=== PATIENT | female | born 1970 | race Caucasian/White ===

== ENCOUNTER → 2021-04-20 08:00 | Outpatient (CLI) | payer OTHER, SELFPAY ==
--- NOTE | ~2021-04-20 | MR_ITS ---
EXAMINATION: MR shoulder LT wo con DATE: 04/20/2021 09:00 INDICATION: Left shoulder pain. Impingement syndrome of left shoulder. TECHNIQUE: Magnetic resonance imaging (MRI) of the left shoulder was performed without intravenous co ntrast. Sequences included axial PD-weighted FS FSE, coronal oblique PD-weighted FS FSE and T2-weight ed FS FSE, and sagittal oblique T2-weighted FS FSE and T1-weighted FSE. COMPARISON: Left shoulder radiographs 04/07/2021 FINDINGS: Coracoacromial arch: The acromion undersurface is curved in morphology (type II). There is inferolateral tilt of acromion. There is mild acromioclavicular joint osteoarthritis. There is mild subacromial/subdeltoid bursitis. Rotator cuff: There is mild tendinopathy of supraspinatus and infraspinatus. Teres minor tendon is normal. Subscapu arjun tendon is normal. There is no asymmetric fatty atrophy of the rotator cuff muscle bellies. Biceps tendon and glenoid labrum: Biceps tendon is in bicipital groove. There is a longitudinal split tear of biceps tendon. There is d egeneration of the glenoid labrum without well-defined tear. Fluid: There is a small glenohumeral joint effusion. Bones/cartilage: There is shallow partial-thickness cartilage loss of glenoid. There is partial-thickness cartilage lo ss of humeral head, deep superiorly. Osteophytes are noted. IMPRESSION: 1. Moderate glenohumeral joint chondrosis. 2. Mild rotator cuff tendinopathy. No tear. 3. Mild acromioclavicular joint osteoarthritis. 4. Longitudinal split tear of proximal biceps tendon. 5. Small glenohumeral joint effusion. 6. Mild subacromial/subdeltoid bursitis. Reviewed, dictated and finalized at location A.
== END ==
PROVIDERS: PCP Internal Medicine; Visit Provider Physician Assistant Surgical
DX: M75.52 Bursitis of left shoulder (principal); M19.012 Primary osteoarthritis, left shoulder; M25.412 Effusion, left shoulder
CPT/HCPCS: 73221

== ENCOUNTER → 2021-04-21 15:09 | Outpatient (CLI) | payer OTHER, SELFPAY ==
--- NOTE | ~2021-04-21 | MM_ITS ---
EXAMINATION: MM scrn slime implant BI w wolf HISTORY: Screening mammogram TECHNIQUE: Craniocaudal and mediolateral oblique 3-D tomosynthesis images with implant displacement a nd synthetic 2-D images were generated. Craniocaudal and mediolateral oblique views of the breasts wi thout implant displacement were obtained using full field digital mammography. CAD analysis was submi tted and interpreted. COMPARISON: Comparison to multiple prior studies sequentially, with oldest reviewed study dated 10/21. BREAST PARENCHYMAL COMPOSITION: There are scattered areas of fibroglandular density. FINDINGS: There is no evidence of suspicious mass, calcification, or architectural distortion to sugg est malignancy in either breast. There has been no suspicious interval change. IMPRESSION: 1. No mammographic evidence of malignancy. 2. Recommend routine screening mammography in one year. BI-RADS Category 1: Negative Reviewed, dictated and finalized at location A.
== END ==
PROVIDERS: PCP Internal Medicine; Visit Provider Nurse Practitioner Obstetrics & Gynecology
DX: Z12.31 Encounter for screening mammogram for malignant neoplasm of breast (principal)
CPT/HCPCS: 77063; 77067

== ENCOUNTER → 2021-07-13 02:33 | Outpatient (CLI) | payer OTHER, SELFPAY ==
[2021-07-13 20:10] LABS: SARS-CoV-2 RNA PCR Positive
== END ==
PROVIDERS: PCP Internal Medicine; Visit Provider Orthopaedic Surgery
DX: U07.1 COVID-19 (principal)
CPT/HCPCS: C9803; U0003; U0005

== ENCOUNTER 2021-07-30 | Day surgery (SDC) | payer OTHER, SELFPAY ==
[2021-07-12 09:53] VITALS: BMI 28.3
--- NOTE | 2021-07-12 10:14 | PC.NURSE ---
Addendum entered by Zulay Bronson RN 07/26/21 10:17: PT INSTRUCTED TO ARRIVE AT 1100 ON 07/30/21 FOR SURGERY AT 1300. LAST DOSE OF VITAMINS 07/26/21. PT HAS STOPPED TAKING NAPROXEN LAST WEEK. Original Note: Report to the Outpatient Waiting Room, entrance under the green pavilion located off [facility], at time 10:00 on date 07/16/21. OR Time: 12:00. - You will be asked a series of questions to screen for COVID 19 for your protection. - A mask is required within the hospital. - No visitors are allowed at this time. Preoperative COVID Testing Requirements: COVID TEST 07/13 AT 7:50 No COVID Test needed if: (proof is required; if not received patient will have Rapid Test prior to entry) - Patient has received COVID Vaccine at least 14 days prior to procedure date or - Patient has positive COVID test result within last 90 days of surgery date. COVID Test needed if above criteria is not met If not COVID vaccinated a COVID test must be conducted within 72 hours of surgery and patient is asked to isolate self from time of testing until procedure. You will go to the [facility] for your COVID testing. The [facility] is located at the corner of [address] [facility]. You will only be called if COVID results are positive and your surgeon may reschedule your elective surgery date. Patients may have clear liquids (water, carbonated beverages, clear teas, apple juice) until 3 hours prior to surgery (9:00) with a maximum of 20 ounces. - No food from midnight until time of surgery Take the following medications with a SIP of water the morning of surgery: SERTRALINE Medications to discontinue per physician: VITAMINS/SUPPLEMENTS Date to take last dose: 07/12/21 STOP NAPROXEN 7 DAYS PRIOR TO SURGERY PER DR. MORENO Please no make-up, nail latvian, hairspray, perfume, deodorant, or body powder the day of surgery. No jewelry (including any body piercings) or valuables the day of surgery, leave them at home. Please take a shower or bath the night before, or the morning of, surgery with an antibacterial soap. Wear comfortable, loose fitting clothing. - Jewelry must be removed prior to entering the operating room. Rings and piercings that are not removed may be cut off. - The hospital will not accept responsibility for valuables. - Please leave all valuables, including medications, at home the day of surgery. If you are going home after surgery, a licensed shag truck driver must drive you home. - NO public transportation without another adult. - We recommend that an adult stay with you for 24 hours following discharge. - We also recommend that you do not drive, make important decision, drink alcoholic beverages, or take any drugs that were not prescribed by your health care provider for at least 24 hours after your discharge time. Follow any additional instructions given to you from your surgeon. Telephone instructions given to SONIA BENZ and asked if any additional questions and then verbalized understanding. Patient advised to call surgeon office or pre surgery nurse liaison [phone] if any additional questions.
--- NOTE | 2021-07-26 10:18 | PC.NURSE ---
Pt states no changes in medications or health history, other than Covid + test result, since initial interview. New instructions reviewed with pt. Pt denies further questions at this time.
--- NOTE | 2021-07-29 12:43 | WPDANESEPPF ---
Anes - Initial Pre Proc Eval Procedure: Operation Date: 07/30/21 10:30 Proposed Procedures p Left Shoulder Arthroscopic Biceps Tenodesis, Capsular Release, Distal Clavicle Excision, Labral Debridement - Mohan Ham MD Date/Time: 07/29/21 12:43 Surgeon: Mohan Ham MD Pre Op Diagnosis: Impinge Syndrome, Adhesive Capsulitis Lt Shoulder Patient Data Age: 50 Gender: F Height: 1.6 m Weight: 72.57 kg Allergies Allergy/AdvReac Type Severity Reaction Status Date / Time No Known Allergies Allergy Verified 07/30/21 09:10 Home Medications Medication Instructions Recorded Confirmed Type naproxen 500 mg tablet See Rx Instructions .ROUTE 11/10/20 07/30/21 Rx .COMPLEX #60 tablet cholecalciferol (vitamin D3) 1,250 1,250 mcg PO WEEKLY #10 cap 04/27/21 07/30/21 Rx mcg (50,000 unit) capsule cholecalciferol (vitamin D3) 25 25 mcg PO DAILY 04/27/21 07/30/21 History mcg (1,000 unit) capsule rosuvastatin 10 mg tablet 10 mg PO DAILY #90 tablet 04/27/21 07/30/21 Rx sertraline 50 mg tablet See Rx Instructions .ROUTE 05/06/21 07/30/21 Rx .COMPLEX #90 tablet Patient hx anesthesia problems: none Family hx anesthesia problems: none Results Review: All pre-operative results and documents have been reviewed as part of the pre-operative evaluation. FORMERLY [facility] Past Medical History Medical History (Updated 07/29/21 @ 12:44 by Stevenson Chin MD) Anxiety BMI 30.0-30.9,adult Encounter for preventive health examination Encounter to establish care Hyperlipidemia On senior living drug therapy Shoulder impingement Vitamin D deficiency Family History Family History Father Diabetes mellitus Hypertension Social History Social History Smoking status: Never smoker Alcohol intake: current Drinks per week: 4 Substance use: never Substance use type: does not use Living arrangements: with family Spiritual care concerns: No Anes - Eval Final PreProcedure Day of Procedure 07/29/21 12:43 Patient weight: overweight Heart: regular rate and rhythm Lungs: clear to auscultation and normal air movement Airway: Mallampati scale class II Neurological: alert and oriented Last oral intake: >/= 8 hours ASA classification: II Emergent: no Anesthetic plan: proceed Anesthesia type and monitoring: general ETT Results Review: All pre-operative results and documents have been reviewed as part of the pre-operative evaluation. Informed Consent: The patient's anesthetic plan and its attendant risks and benefits were discussed with the patient/family/POA. Questions were solicited and answers provided to the satisfaction of the patient/family/POA.
[2021-07-30] VITALS (9 sets, daily range): BP systolic 107–129; BP diastolic 62–85; PULSE 61–86; RESP 11–20; TEMP 36.2–36.9; O2SAT 94–100; BMI 28.1
--- NOTE | 2021-07-30 07:24 | WPDHPUPDATE1 ---
History and Physical Update Update Date/Time: 07/30/21 07:24 History and Physical has been reviewed, including an updated exam of the patient. There are NO changes in the patient's condition. Risks, benefits, and alternatives have been discussed and questions answered. Patient agrees to proceed with procedure.
--- NOTE | 2021-07-30 07:58 | ECG_ITS ---
Measurements Intervals [place] Rate: 71 P: 32 MT: 150 QRS: 45 QRSD: 76 T: 40 QT: 393 QTc: 430 Interpretive Statements SINUS RHYTHM DELAYED PRECORDIAL R/S TRANSITION LOW QRS VOLTAGE IN PRECORDIAL LEADS BORDERLINE T WAVE ABNORMALITY- ANTERIOR LEADS BASELINE ARTIFACT- III BORDERLINE ECG Electronically Signed On 07-30-2021 9:44:24 MACHINE BINDER STRIPPER by Elan Giraldo D.O.
--- NOTE | 2021-07-30 09:24 | WPDANESPNB ---
Anes - Peripheral Nerve Block Date/Time: 07/30/21 09:24 I have discussed with the patient/family/POA the placement of a peripheral nerve block for post-operative pain management, including associated risks, benefits, complications, and side effects. Alternative methods of post-operative analgesia were detailed. Questions were solicited and answers provided to the satisfaction of the patient/family/POA. Time-Out: A pre-procedural Time-Out was completed immediately before starting the procedure and confirmed: Patient Identification, Site, Procedure, Patient Position and the Availability of Requisite Equipment. Clinical Indications: Acute post-operative pain management requested by the operative surgeon. Nerve Block Insertion Note Anes-nerve block: supraclavicular left Patient position: supine Skin prep: chlorhexidine Needle: 22 gauge, stimulating, insulated echogenic needle. Needle length: 80 mm Technique: ultrasound (in plane) Injectate: bupivacaine 0.5% with epi 5 mcg/ml (20cc) Observations: tolerated well Complications: none Procedure start time:: 945 Procedure end time:: 950
[2021-07-30] MEDS: LACTATED RINGERS 1,000 ML 30 ML IV CONT ×2 (09:26→12:54)
[2021-07-30] MEDS: ACETAMINOPHEN 500 MG TABLET 1000 MG PO (09:26)
[2021-07-30] MEDS: KETOROLAC 15 MG/ML VIAL (*BKC) IV PUSH (09:26)
--- NOTE | 2021-07-30 09:48 | PM.HPGS ---
History of Present Illness History of Present Illness Consent: Risks, benefits, and alternatives have been discussed and questions answered. Patient agrees to proceed with procedure. Chief complaint: Impinge Syndrome, Adhesive Capsulitis Lt Shoulder Narrative: Judy Ring is a 50 year old female who complains of severe left shoulder pain and decreased ROM that has been ongoing since December 2018. Pain worse at night and with overhead motions, jerking motions. Notes some numbness and tingling in her hand radiating from her arm. Previous Treatments: NSAIDs Naproxen with mild benefit, Physical therapy for 2.5 months starting in October with minor benefit. Review of systems: Unremarkable PMFSH Past Medical History Medical History Anxiety BMI 30.0-30.9,adult Encounter for preventive health examination Encounter to establish care Hyperlipidemia On seamstress fitter drug therapy Shoulder impingement Vitamin D deficiency Family History Family History Father Diabetes mellitus Hypertension Social History Social History Smoking status: Never smoker Alcohol intake: current Drinks per week: 4 Substance use: never Substance use type: does not use Living arrangements: with family Spiritual care concerns: No Meds Home Medications and Allergies Home Medications Medication Instructions Recorded Confirmed Type naproxen 500 mg tablet See Rx Instructions .ROUTE 11/10/20 07/30/21 Rx .COMPLEX #60 tablet cholecalciferol (vitamin D3) 1,250 1,250 mcg PO WEEKLY #10 cap 04/27/21 07/30/21 Rx mcg (50,000 unit) capsule cholecalciferol (vitamin D3) 25 25 mcg PO DAILY 04/27/21 07/30/21 History mcg (1,000 unit) capsule rosuvastatin 10 mg tablet 10 mg PO DAILY #90 tablet 04/27/21 07/30/21 Rx sertraline 50 mg tablet See Rx Instructions .ROUTE 05/06/21 07/30/21 Rx .COMPLEX #90 tablet Allergies Allergy/AdvReac Type Severity Reaction Status Date / Time No Known Allergies Allergy Verified 07/30/21 09:10 Vital Signs Vital Signs - 24 hr 07/30/21 09:21 Temperature 36.9 C Pulse Rate 86 Respiratory Rate 18 Blood Pressure 129/85 Pulse Oximetry 98 Exam Narrative: No distress. Normal gait. Alert and oriented. No deformity. Exquisite tenderness at the rotator cuff insertion anterolaterally. Also tenderness along the proximal biceps. Moderate tenderness at the AC joint. Active elevation 150?, external rotation 45?, internal rotation to the greater trochanter. Painful arc of motion. Deltoid muscle intact. Supraspinatus strength 5/5. Speed's test positive. Positive Neer and Ugarte signs. Cervical spine motion normal. Cloth Cutting Machine Operator strength normal. Radial pulse palpable. Distal light touch sensation normal. Elbow full range of motion without instability. Shoulder without instability. No crepitus. The contralateral shoulder shows no deformity. No tenderness. No crepitus. Full active range of motion. No instability. Normal rotator cuff strength Diagnostics: Radiographs taken 04/07/21. No joint space narrowing. Left shoulder shows type 2 acromion. Very subtle suggestion of inferior humeral osteophyte although this may be related to shadows from her garments. 04/20/21 MRI. Longitudinal split tear of the biceps tendon noted. Possible superior labral tear. Partial-thickness cartilage loss and chondrosis with small inferior osteophyte. Significant rotator cuff tendinosis with evidence of impingement. No definite tear although subtle bursal side tear cannot be excluded. Assessment and Plan Assessment and plan (1) Adhesive capsulitis of left shoulder: Code(s): M75.02 - Adhesive capsulitis of left shoulder Status: Acute (2) Shoulder impingement: Qualifiers: Laterality: left Qualified Code(s): M75.42 - Impingement syndrome of
[2021-07-30] MEDS: ceFAZolin 2 GM/D5W 50 ML 2 GM/50 ML BAG IVPB (10:00)
[2021-07-30] MEDS: ONDANSETRON INJ 4 MG/2 ML VIAL IV PUSH (13:20)
[2021-07-30] MEDS: SCOPOLAMINE 1.5 MG PATCH TRANSDERM (13:35)
--- NOTE | 2021-07-30 15:06 | P.OP_ITS ---
Procedure Note - Detailed Date of Procedure 07/30/21 Pre-op Diagnosis Impingement Syndrome, Adhesive Capsulitis Lt Shoulder Post-op Diagnosis other (1. Left shoulder osteoarthritis 2. Adhesive capsulitis 3. Impingement syndrome 4. Acromioclavicular joint arthritis) Procedure Performed Left shoulder 1. Arthroscopic humeral chondroplasty 2. labral debridement 3. capsule release 4. distal clavicle excision 5. subacromial decompression Surgeon Mohan Ham MD Distribution Dispatcher Gladys Linares PA-C Anesthesia general Indications Severe shoulder pain and stiffness. Failed conservative treatment. Pain at the AC joint and biceps. MRI evidence of chondral damage and impingement with biceps tendonitis. Findings Extensive delamination with full thickness loose chondral flaps at the humerus. Moderate glenoid chondromalacia and labral degeneration. Description of Procedure Preoperative antibiotics were given. The patient was placed in the beach chair position. Bony prominences were carefully protected. The head was carefully positioned and secured. Examination under anesthesia revealed marked stiffness. Elevation approximately 90?, external rotation 25?, internal rotation 25?. The shoulder was prepped and draped in the usual sterile fashion. Standard posterior and anterior arthroscopic portals were established. Inflow obtained with the saline pump. Extensive synovitis encountered. Very tight glenohumeral joint. Large delaminated portions of the humeral head cartilage were observed. Debridement was performed. Much of the humeral head was denuded of cartilage. The glenoid had grade 1/2 chondromalacia. Labral degeneration was present. Superior labral tear also. The biceps tendon was lassoed and penetrated to form a locking suture construct. It was released from the superior labrum for later tenodesis. The supraspinatus and infraspinatus appeared normal. The subscapularis had mild undersurface splitting but no tearing. Capsule release was performed sequentially from both posterior and anterior portal approaches. The hook radiofrequency probe as well as the biter were used to carefully release the anterior and posterior capsule into the axillary fossa. The rotator interval tissue was excised. The biceps was tenodesed at the articular margin using a knotless SwiveLock anchor. The joint was much more mobile and the axillary pouch released nicely. Attention was turned to the subacromial space. The bursa was mildly thickened. The rotator cuff appeared intact. Slight downsloping of the anterolateral acromion confirmed. Modest acromioplasty performed. The distal clavicle was cleared of soft tissue and 1 cm distal clavicle excision performed. An accessory lateral portal was used during the procedure. The arthroscopic instruments were removed. The wounds were closed with interrupted 4-0 Monocryl suture followed by Steri-Strips. A sterile sling and dressing will are applied. The patient was extubated and brought to the recovery room in stable condition. Physician delivery assistant, Gladys Mejia PA-C, required for surgery; including patient positioning, draping, arthroscopic camera operation, maintaining instrument position, suture retrieval, anchor placement, wound closure, and dressing and sling placement. Implants Arthrex proximal biceps tenodesis kit with suture passing device, lasso suture, and knotless SwiveLock anchor. Estimated Blood Loss 10 Packing No Pathology none sent Complications No immediate complications Condition stable Disposition same day
== END 2021-07-30 15:00 | disposition home or self-care (01) ==
PROVIDERS: PCP Internal Medicine; Visit Provider Orthopaedic Surgery
PROC: (CPT 29805; principal; 2021-07-30 10:30)
DX: M75.02 Adhesive capsulitis of left shoulder (principal); M75.82 Other shoulder lesions, left shoulder; M75.22 Bicipital tendinitis, left shoulder; M65.812 Other synovitis and tenosynovitis, left shoulder; M25.812 Other specified joint disorders, left shoulder; M94.212 Chondromalacia, left shoulder; M25.511 Pain in right shoulder; M19.012 Primary osteoarthritis, left shoulder; G89.18 Other acute postprocedural pain; F41.9 Anxiety disorder, unspecified; E78.5 Hyperlipidemia, unspecified; E55.9 Vitamin D deficiency, unspecified
CPT/HCPCS: 64415; 29828; 29824; 29826; 93005; A4565; A9270; J0330; J0690; J1100; J1885; J2250; J2370; J2405; J2704; J2710; J3010; J7120

== ENCOUNTER 2024-01-03 15:04 | Outpatient (CLI) | payer OTHER, SELFPAY ==
--- NOTE | ~2024-01-03 | MM_ITS ---
EXAMINATION: MM scrn slime implant BI w wolf HISTORY: Screening mammogram TECHNIQUE: Craniocaudal and mediolateral oblique 3-D tomosynthesis images with implant displacement a nd synthetic 2-D images were generated. Craniocaudal and mediolateral oblique views of the breasts wi thout implant displacement were obtained using full field digital mammography. CAD analysis was submi tted and interpreted. COMPARISON: 04/21/2021, 11/20/2018 BREAST PARENCHYMAL COMPOSITION: The breasts are heterogeneously dense, which may obscure small masses . FINDINGS: There is no evidence of suspicious mass, calcification, or architectural distortion to sugg est malignancy in either breast. There has been no suspicious interval change. IMPRESSION: No mammographic evidence of malignancy. Recommend routine screening mammography in one year. BI-RADS Category 1: Negative Reviewed, dictated and finalized at [facility].
== END 2024-01-03 15:05 ==
PROVIDERS: PCP Nurse Practitioner; Visit Provider Nurse Practitioner
DX: Z12.31 Encounter for screening mammogram for malignant neoplasm of breast (principal)
CPT/HCPCS: 77063; 77067

== ENCOUNTER 2024-05-22 05:48 | Day surgery (SDC) | payer OTHER, SELFPAY ==
[2024-05-06 13:07] VITALS: BMI 23.4
[2024-05-22] VITALS (8 sets, daily range): BP systolic 98–151; BP diastolic 63–100; PULSE 71–104; RESP 12–16; TEMP 35.9–37.1; O2SAT 94–100
[2024-05-22] MEDS: LACTATED RINGERS 1,000 ML 30 ML IV CONT ×2 (06:50→10:55)
--- NOTE | 2024-05-22 06:52 | P.PNAN_ITS ---
Anes - Initial Pre Proc Eval Procedure: Operation Date: 05/22/24 07:30 Proposed Procedures p Bilateral Breast Implant Exchange - Lasha Armendariz MD s Bilateral Breast Mastopexy - Lasha Armendariz MD Date/Time: 05/22/24 06:52 Surgeon: Lasha Armendariz MD Pre Op Diagnosis: Possible LT Breast Implant Rupture, Breast Ptosis Patient Data Age: 53 Gender: F Height: 1.6 m Weight: 63.2 kg Allergies Allergy/AdvReac Type Severity Reaction Status Date / Time No Known Allergies Allergy Verified 05/22/24 06:12 Home Medications Medication Instructions Recorded Confirmed Type cholecalciferol (vitamin D3) 25 50 mcg PO DAILY 05/12/22 05/22/24 History mcg (1,000 unit) capsule lorazepam 0.5 mg tablet 0.5 mg PO DAILY PRN anxiety #40 08/31/23 05/22/24 Rx tabs estradiol 1 tab-cap PO DAILY 09/11/23 05/22/24 History magnesium 1 tab-cap PO DAILY 09/11/23 05/22/24 History mecobalamin (vitamin B12) 1 tab-cap PO DAILY 09/11/23 05/22/24 History omega-3 fatty acids-fish oil 1 tab-cap PO DAILY 09/11/23 05/22/24 History sertraline 50 mg tablet See Rx Instructions .Route 04/26/24 05/22/24 Rx .COMPLEX #90 tabs Patient hx anesthesia problems: none Family hx anesthesia problems: none Results Review: All pre-operative results and documents have been reviewed as part of the pre- operative evaluation. FOR[facility]LY [facility] Past Medical History Medical History (Updated 03/27/24 @ 09:01 by Saumya Willingham [facility]) Anxiety BMI 23.0-23.9, adult BMI 26.0-26.9,adult BMI 28.0-28.9,adult BMI 30.0-30.9,adult Carpal tunnel syndrome of left wrist Colon cancer screening Degenerative disc disease, lumbar Depressed mood DJD (degenerative joint disease) Encounter for preventive health examination Encounter for routine adult health examination without abnormal findings Encounter to establish care Hormone replacement therapy (HRT) Hyperlipidemia On middle or intermediate school principal drug therapy Sciatica of left side Shoulder impingement Tendonitis of elbow, left Vitamin D deficiency Family History Family History Father Diabetes mellitus Hypertension Heart disease Cerebrovascular accident Social History Social History Social History: caffeine-tea Smoking status: Never smoker Second hand tobacco smoke exposure: No Alcohol intake: current Drinks per week: 3 Substance use: never Substance use type: does not use Lack of Transportation: No Lack of Food: Never True Current Housing: I Have Housing Concerned About Future Housing: No Difficulty Paying Gas/Electric Bills: No Difficulty Paying for Meds: No Currently Unemployed: No Education: Associate Degree Difficulty w/ Childcare or Family Care: No Living arrangements: alone Gender identity (if verbalized by the patient): Female Spiritual care concerns: No Anes - Eval Final PreProcedure Day of Procedure 05/22/24 06:52 Patient weight: normal Heart: regular rate and rhythm Lungs: clear to auscultation Airway: Mallampati scale class III Neurological: alert and oriented Last oral intake: >/= 8 hours ASA classification: II Emergent: no Anesthetic plan: proceed Anesthesia type and monitoring: general LMA and standard monitoring Results Review: All pre-operative results and documents have been reviewed as part of the pre- operative evaluation. Informed Consent: The patient's anesthetic plan and its attendant risks and benefits were discussed with the patient/family/POA. Questions were solicited and answers provided to the satisfaction of the patient/family/POA.
[2024-05-22] MEDS: SCOPOLAMINE 1 MG PATCH 1 PATCH TRANSDERM (07:15)
--- NOTE | 2024-05-22 07:20 | WPDHPUPDATE1 ---
History and Physical Update Update Date/Time: 05/22/24 07:20 History and Physical has been reviewed, including an updated exam of the patient. There are NO changes in the patient's condition. Risks, benefits, and alternatives have been discussed and questions answered. Patient agrees to proceed with procedure.
[2024-05-22] MEDS: ceFAZolin SODIUM 2 GM/20 ML SW SYRINGE IV PUSH (07:36)
[2024-05-22] MEDS: TRANEXAMIC ACID 1,000 MG/10 ML AMPUL 1000 MG IV PUSH (07:36)
[2024-05-22] MEDS: NACL 0.9% IRRIG POUR BOTTLE 900 ML, GENTAMICIN SULFATE INJ 160 MG, ceFAZolin 2 GM, POVI... IRRIGATION (08:30)
[2024-05-22] MEDS: LACTATED RINGERS IRRIG 1,000 ML, LIDOCAINE HCL 1% LOCAL INJ 50 ML, EPINEPHrine HCL INJ ... INFILTRATE (08:40)
--- NOTE | 2024-05-22 10:51 | W.PM.PROC2 ---
Procedure Note - Detailed Date of Procedure 05/22/24 Pre-op Diagnosis Possible LT Breast Implant Rupture, Breast Ptosis Post-op Diagnosis Same Procedure Performed 1. Bilateral breast implant exchange 2. Bilateral breast mastopexy Surgeon Lasha Armendariz MD Anesthesia General Findings Inverted T Superior medial pedicle Previous implants: Bilateral Style 20 - 435cc Right intact Left ruptured Submuscular Replacement implants: Bilateral Jose Luis Morejon SoftTouch 485cc Right: REF# [id number] SN [id number] Left: REF# [id number] SN [id number] Submuscular Description of Procedure She is here today for the above. Previously and again today the risks, benefits, alternatives were discussed in extensive detail. I wanted her to be very realistic about the risks involved as well as expectations. We discussed aftercare and what to monitor for. Made sure answered all of her questions to her satisfaction today and consent was obtained. Marked in the preoperative holding area with their verification. The patient was taken to the operating room placed supine on the operating table. Anesthesia was provided by anesthesiology. A surgical time-out was taken. She was prepped and draped in a standard sterile fashion. Tegaderm nipple Cain were placed. 11 blade used to make a lateral stab incision along lateral IMF. Infiltration completed with tumescent solution laterally as a block / for planned suction lipectomy of this area. A 15 blade used to make an incision at th previous implant incison. Dissection was continued until the capsule was identified and I elevated off of this and removed a portion of capsule. Capsules were soft. Implants removed (findings as above). Copiously irrigated with more than 3 liters of saline solution and verified a strict hemostasis. Changed gloves. Capsulotomy completed as needed. I then copiously irrigated with saline solution and verified a strict hemostasis. Next the use a triple antibiotic and Betadine containing solution to irrigate the pocket. I washed my gloves with the triple antibiotic and Betadine solution. We washed the implant immediately upon opening it with this solution and only opened it when we needed it. I used implant funnel and no-touch technique. The implant was introduced into the pocket using the funnel. Having verified positioning of the implant this was closed using 2-0 PDS. Suction lipectomy was completed with a 4mm dave cannula based on preoperative planning and intraoperative observation / rolling pinch. I tailor tacked the breast into position. Placed her in a sitting position. Verified the nipple-areolar location based on preoperative planning as well as intraoperative observations and measurements in full agreement. She was placed supine. I de-epithelialized the pedicle. I then removed the inferior central portion of the breast need making sure the implant was well protected. I elevated medial and lateral tissue flaps as well for planned closure. I closed along the IMF with 2-0 Stratafix. Along the vertical with 2-0 PDS. I closed around the areola with 3-0 strata fix. 3-0 Monocryl along the vertical. 3-0 Stratafix along the IMF. I finally closed everything with running subcuticular 4-0 Monocryl and tissue glue. Fluffs and surgical bra were placed. Estimated Blood Loss 50 Drains No Packing No Pathology None sent Complications No immediate complications Condition Stable Disposition PACU
--- NOTE | 2024-05-22 12:34 | WPDANESPN ---
Anes - Prog Note Post-Op Date/Time: 05/22/24 12:34 Cardiovascular status: normal Respiratory status: normal Airway patency: baseline Mental status: baseline Post-Op hydration status: normal Vital Signs: Last Vital Signs Temp 36.1 C L 05/22/24 11:25 Pulse 71 05/22/24 12:20 Resp 16 05/22/24 12:20 BP 110/75 05/22/24 12:20 Pulse Ox 95 05/22/24 12:05 O2 Del Method Room Air 05/22/24 12:05 O2 Flow Rate 6 05/22/24 11:10 Pain Score (VAS): 2 I/O: Intake & Output 05/21/24 05/22/24 05/22/24 23:59 07:59 15:59 Intake Total 500 200 Balance 500 200 Post-procedural complaints: none Patient Feedback: Patient satisfied with anesthetic care. Other Findings: Patient vital signs back to baseline. Patient denies nausea and vomiting. Patient's pain under control. Patient OK for discharge.
== END 2024-05-22 12:28 | disposition home or self-care (01) ==
PROVIDERS: PCP Internal Medicine; Visit Provider Surgery Plastic and Reconstructive Surgery
PROC: (CPT 19342; principal; 2024-05-22 07:30)
PROC: (CPT 19316; 2024-05-22 07:30)
DX: T85.41XA Breakdown (mechanical) of breast prosthesis and implant, initial encounter (principal)
CPT/HCPCS: 19342; 19316

== ENCOUNTER 2024-09-16 09:49 | Outpatient (CLI) | payer OTHER, SELFPAY ==
[2024-09-16 10:57] LABS: Alanine Aminotransferase 19 U/L (6-35); Albumin Level 4.5 g/dL (3.5-5.1); Alkaline Phosphatase 70 U/L (38-126); Anion Gap 7 mmol/L (4-12); Aspartate Amino Transferase 22 U/L (14-36); Bilirubin,Total 0.4 mg/dL (0.2-1.3); Blood Urea Nitrogen 16 mg/dL (7-17); Calcium 9.5 mg/dL (8.4-10.2); Carbon Dioxide 28 mmol/L (22-30); Chloride 104 mmol/L (98-107); Cholesterol 197 mg/dL (0-200); Estimated Glomerular Filt Rate > 60; Glucose 90 mg/dL (65-110); HDL Direct 76 mg/dL; Potassium 4.5 mmol/L (3.4-5.0); Sodium 139 mmol/L (137-145); Triglycerides 84 mg/dL (<150)
[2024-09-16 11:08] LABS: LDL Cholesterol Direct 93 mg/dL
--- OUTSIDE RECORDS SUMMARY | 2024-09-16 11:12 | XMS_ITS | Clinical Summary ---
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 Gender Identity Not on file Sexual Orientation Not on file Obstetrics History Last Filed Vital Signs Vital Sign Reading Time Taken Comments Blood Pressure 110/76 05/16/2017 3:31 PM TUTORING CLINICIAN Pulse - - Temperature - - Respiratory Rate - - Oxygen Saturation - - Inhaled Oxygen Concentration - - Weight 62.6 kg (138 lb) 05/16/2017 3:31 PM TUTORING CLINICIAN Height 160 cm (5' 3 ) 05/16/2017 3:31 PM TUTORING CLINICIAN Body Mass Index 24.45 05/16/2017 3:31 PM TUTORING CLINICIAN Plan of Treatment Not on file Insurance [employer] Care Teams Wearing Apparel Presser Relationship Specialty Start Date End Date Unknown, Notinfile PCP - General 11/29/16
--- OUTSIDE RECORDS SUMMARY | 2024-09-16 11:12 | XMS_ITS | Encounter Summary ---
Author Organization [facility] Address [address] [place] [phone] Phone Care Team Providers Care Production Recovery Operator Name Role Phone Unknown, Notinfile Primary Care Provider Unavail able Reason for Referral * Diagnostic Imaging (Routine) - Closed Specialty Diagnoses / Procedures Referred By Contac t Referred To Contact Procedures US Abdomen W Doppler Audie Acharya MD Phone: tel: fax: Referral ID Status Reason Start Date Expiration Date Visits Re quested Visits Authorized [id number] Closed 01/25/2017 07/24/2017 1 1 Encounter Details Date Type Department Care Team (Late st Contact Info) Description 01/25/2017 Orders Only [facility] [address] [phone] Audie Acharya MD [address] [address] Social History Tobacco Use Types Packs/Day Years Used Date Smoking Tobacco: Never Assessed Comments Unknown Sex and Gender Information Value Date Recorded Sex Assigned at Not on file 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 Gender Identity Not on file Sexual Orientation Not on file documented as of this encounter Plan of Treatment Not on file documented as of this encounter Procedures Procedure Name Priority Date/Time Associated Diagnosis Comments US ADBDOMEN W DOPPLER Schedule Routine, Read Routine (OP Routine) 01/25/2017 documented in this encounter Results * US Abdomen W Doppler (01/25/2017) Anatomical Region Laterality Modality Abdomen N/A Ultrasound us Audie Acharya MD IMSrinivasan US PROCEDURES Edited Result - Final documented in this encounter Visit Diagnoses Not on filedocumented in this encounter Care Teams Production Recovery Operator Relationship Specialty Start Date End Date Unknown, Notinfile PCP - General 11/29/16 documented as of this encounter
--- OUTSIDE RECORDS SUMMARY | 2024-09-16 11:13 | XMS_ITS | Clinical Summary ---
Author Organization [facility] Address [address] [place] [id number] Care Team Providers Care Electrical Equipment Assembler Name Role Phone Unavailable Primary Care Provider Unavailabl e Social History Tobacco Use Types Packs/Day Years Used Date Smoking Tobacco: Never Assessed Comments Unknown Sex and Gender Information Value Date Recorded Sex Assigned at Not on file Legal Sex Female 7:11 PM CDT Gender Identity Not on file Sexual Orientation Not on file Plan of Treatment Health Maintenance Due Date Last Done Comments Cervical Cancer Screening Pa p Smear (Age 30 to 64) Every 3 Years 1971 Colorectal Cancer Screening Colonoscopy (10 Years) 1971 Annual Physical 12/12/1974 Hepatitis C 12/12/1989 DTaP, Tdap and Td Vaccines ( 1 - Tdap) 12/12/1990 Hepatitis B Vaccines (1 of 3 - 19+ 3-dose series) 12/12/1990 Cervical Cancer Screening Pa p with HPV Testing (Age 30 to 64) Every 5 Years 12/12/2001 Cervical Cancer Screening with HPV 12/12/2001 Mammogram Screening 2011 Zoster Vaccines (1 of 2) 12/12/2021 COVID-19 Vaccine (2023-2 5 season) 2024 Influenza Adult (#1) 2024 Meningococcal B Vaccine Aged Out No l onger eligible based on patient's age to complete this topic Meningococcal Vaccine Aged Out No tamara carissa eligible based on patient's age to complete this topic Pneumococcal Vaccine: Pediat rics (0 to 5 Years) and At-Risk Patients (6 to 64 Years) Aged Out No longer eligible b ased on patient's age to complete this topic RSV Immunizations Under 20 Months Aged Out No longer eligible based on patient's age to complete this topic
--- OUTSIDE RECORDS SUMMARY | 2024-09-16 11:13 | XMS_ITS | Referral Summary ---
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 Gender Identity Not on file Sexual Orientation Not on file Last Filed Vital Signs Vital Sign Reading Time Taken Comments Blood Pressure 110/76 05/16/2017 3:31 PM PROFESSOR OF [employer]UD[employer] Pulse - - Temperature - - Respiratory Rate - - Oxygen Saturation - - Inhaled Oxygen Concentration - - Weight 62.6 kg (138 lb) 05/16/2017 3:31 PM PROFESSOR OF [employer]UDIES Height 160 cm (5' 3 ) 05/16/2017 3:31 PM PROFESSOR OF [employer] STUDIES Body Mass Index 24.45 05/16/2017 3:31 PM PROFESSOR OF [employer] STUDIES Plan of Treatment Not on file Insurance [employer] [facility] H[facility]/PPO Address: [facility] [address] [place] [address] Care Teams Wildlife Veterinarian Relationship Specialty Start Date End Date Unknown, Notinfile PCP - General 11/29/16
--- OUTSIDE RECORDS SUMMARY | 2024-09-16 11:13 | XMS_ITS | Data Portability ---
Author Organization [facility] [place] Address [address] [place] [address] Care Team Providers Care Solvent Recoverer Name Role Phone [email or web address] Primary Care Provider Assessment Encounter Date Assessment Date Assessment LastModified by Organization Details LastModified Time 04/07/2022 04/07/2022 Annual gynecological exam performed. Patient will come back in a year unless there are new symptoms. [email or web address] Not available 04/07/2022 12:15:17 09/15/2022 09/15/2022 Unbillable encounter. IUD MIrena is not . Good x 8yrs. Placed 2017. [email or web address] Not available 09/15/2022 11:13:17 05/16/2023 05/16/2023 Annual gynecological exam performed. Patient will come back in a year unless there are new symptoms. [email or web address] Not available 05/16/2023 09:04:33 08/08/2024 08/08/2024 Annual gynecological exam performed. Patient will come back in a year unless there are new symptoms. [email or web address] Not available 08/08/2024 10:44:23 Plan of Treatment Reminders Order Date Submit Date Provider Last Modified By Organization Details Last Modified Time Details Appointments None recorded. Lab None recorded. Referral None recorded. Procedures None recorded. Surgeries None recorded. Imaging MAMMO, screening, digital, bilateral 2022 023 MEEK [facility], [address], [place], [address], 4 07:41:29 US, pelvis 2021 022 [email or web address] [place], [address], [place], [address], 01:48:47 US, transvagina l 2021 [email or web address] [place], [address], [place], [address], 01:48:47 MAMMO, screening, bilateral 2021 MEEK [facility], [address], [place], [address], 05:01:44 US, pelvis, complete 2021 [email or web address] [place] [address], [place], [address], 18:06:57 Medication Orders None recorded. Patient TargetsNo targets recorded. Patient InstructionsNo instructions recorded. Reason for Referral None Reported. Results Created Date Observation Date Name Description Value Unit Range Abnormal Flag Note LastModifiedBy Organization Detail LastModifiedTime 04/08/20 22 04/08/2022 IMAGE GUIDE D PAP AND HPV REGAR DLESS image guided Pap, HPV regardless of Pap result SEE RESULT S BELOW CASE REPOR T: Cytol ogy Gynec ologi michelle Repor t Case: [id number] Autho courtney roberts Provi ramírez: Greg Ross Colle cted: 04/08 1101 FLEET MAINTENANCE MANAGER Order ing Locat ion: [place] [facility] log[facility] Recei jhoana: 04/10 1437 First Scree n: Nacha mpass ak, Sivil ay, CT Speci men: Scree callum Pap - Image d, Cervi x STATE MENT OF ADEQU ACY: Satis facto ry for evalu ation Trans forma tion zone compo nent prese nt FINAL DIAGN OSIS: Negat daniel for Intra epith elial Lesio n or Malig karoline (NIL) . Shift in an[place] sugge stive of bacte rial vagin osis. Elect rod porter christen d by Milagros stevens, Nasrin pillai, CT on 2021 at 2:05 PM ----- ----- ----- ----- ----- ----- ----- ----- ----- ----- ----- ----- ----- ----- ----- ----- ----- ---- HPV RESUL TS: HPV mRNA E6/E7 : No HPV mRNA Detec armando NOTE: This high risk HPV mRNA assay detec ts fourt een high- risk HPV types (16, 18, 31, 33, 35, 39, 45, 51, 52, 56, 58, 59, 66, 68) witho ut diffe renti ation . COMME NT: Note: This speci men was revie wed by a Cytot echno logis t and/o r Patho logis t (as indic ated in this repor t) after evalu ation using the Thinp rep Imagi ng Syste m. CLINI MICHELLE INFOR MATIO N: Menst rual Statu s: LMP (if appli cable ): Clini michelle Histo ry/Pr eviou s Pap: Type of Neopl donovan (if appli cable ): Signi fican t Clini michelle Findi ngs: Other Histo ry: Hormo geetha (if appli cable ): PAP EDUCA CLAUDIA L NOTE: The Pap Test is a scree callum test with an inher ent false negat daniel rate. Liqui d-bas ed sampl ing may decre ase, but will not elimi michael, false negat daniel resul ts. A negat daniel resul t does not precl ude the prese nce and/o r devel opmen t of disea se, since the prese nce of abnor mal cells in the sampl e depen ds on the locat ion of the lesio n and sampl ing techn ique. [place] n[place] regul ar scree callum is the best metho d of cance r preve ntion . If repor armando cytol ogic findi ng do not corre late with physi michelle and/o r histo rical findi ngs, furth er inves tigat ion is recom brianne d, as clini rebel young nted. Not Available [facility] Infectious Disease [address], [place], [address], 04/15/2022 15:08:04 05/16/20 23 05/16/2023 IMAGE GUIDE D PAP AND HPV REGAR DLESS image guided Pap, HPV regardless of Pap result SEE RESULT S BELOW CASE REPOR T: Cytol ogy Gynec ologi michelle Repor t Case: [id number] Autho courtney g Provi ramírez: Mariam Barahona, SHILA Colle cted: 05/16 1337 Order ing Locat ion: [place] [facility] Recei jhoana: 05/17 0318 First Scree n: Nathalie Barker, CT Speci men: Scree callum Pap - Image d, Cervi x STATE MENT OF ADEQU ACY: Satis facto ry for evalu ation Trans forma tion zone compo nent prese nt FINAL DIAGN OSIS: Negat daniel for Intra epith elial Lesio n or Vitaly ramey (NIL) . Shift in [place] sugge stive of bacte rial vagin osis. Elect rod porter christen d by Nathalie Barker, CT on 2022 at 11:45 AM ----- ----- ----- ----- ----- ----- ----- ----- ----- ----- ----- ----- ----- ----- ----- ----- ----- ---- HPV RESUL TS: HPV mRNA E6/E7 : No HPV mRNA Detec armando NOTE: This high risk HPV mRNA assay detec ts fourt een high- risk HPV types (16, 18, 31, 33, 35, 39, 45, 51, 52, 56, 58, 59, 66, 68) witho ut diffe renti ation . COMME NT: This speci men was revie wed by a Cytot echno logis t and/o r Patho logis t (as indic ated in this repor t) after evalu ation using the Thinp rep Imagi ng Syste m. CLINI MICHELLE INFOR MATIO N: Menst rual Statu s: LMP (if appli cable ): Clini michelle Histo ry/Pr eviou s Pap: Type of Neopl donovan (if appli cable ): Signi fican t Clini michelle Findi ngs: Other Histo ry: Hormo geetha (if appli cable ): PAP EDUCA CLAUDIA L NOTE: The Pap Test is a scree callum test with an inher ent false negat daniel rate. Liqui d-bas ed sampl ing may decre ase, but will not elimi michael, false negat daniel resul ts. A negat daniel resul t does not precl ude the prese nce and/o r devel opmen t of disea se, since the prese nce of abnor mal cells in the sampl e depen ds on the locat ion of the lesio n and sampl ing techn ique. [place] n[place] regul ar scree callum is the best metho d of cance r preve ntion . If repor armando cytol ogic findi ng do not corre late with physi michelle and/o r histo rical findi ngs, furth er inves tigat ion is recom brianne d, as clini rebel young nted. Not Available [facility] (Lab) [address] [facility] [facility], [place], [address], 05/18/2023 12:49:13 08/08/19 25 08/08/2024 IMAGE GUIDE D PAP AND HPV REGAR DLESS image guided Pap, HPV regardless of Pap result SEE RESULT S BELOW CASE REPOR T: Cytol ogy Gynec ologi michelle Repor t Case: [id number] Autho courtney g Provi ramírez: Emmanuel Montalvo MD Colle cted: 08/08 1102 Order ing Locat ion: [place] [facility] [place] Recei jhoana: 08/09 0316 First Scree n: Cr Singh, CT Speci men: Scree callum Pap - Image d, Cervi x STATE MENT OF ADEQU ACY: Satis facto ry for evalu ation Trans forma tion zone compo nent prese nt ----- ----- ----- ----- ----- ----- ----- ----- ----- ----- ----- ----- ----- ----- ----- ----- ----- ---- FINAL DIAGN OSIS: Negat daniel for Intra epith elial Lesio n or Vitaly ramey (NIL) . Shift in [place] sugge stive of bacte rial vagin osis. Elect rod reeder by Cr Singh, CT on 025 at 1529 FACILITIES MANAGER ----- ----- ----- ----- ----- ----- ----- ----- ----- ----- ----- ----- ----- ----- ----- ----- ----- ---- HPV RESUL TS: HPV mRNA E6/E7 : No HPV mRNA Detec armando NOTE: This high risk HPV mRNA assay detec ts fourt een high- risk HPV types (16, 18, 31, 33, 35, 39, 45, 51, 52, 56, 58, 59, 66, 68) witho ut diffe renti ation . COMME NT: This speci men was revie wed by a Cytot echno logis t and/o r Patho logis t (as indic ated in this repor t) after evalu ation using the Thinp rep Imagi ng Syste m. CLINI MICHELLE INFOR MATIO N: Menst rual Statu s: LMP (if appli cable ): Clini michelle Histo ry/Pr eviou s Pap: Type of Neopl donovan (if appli cable ): Signi ficreyna t Clini michelle Findi ngs: Other Histo ry: Hormo geetha (if appli cable ): PAP EDUCA CLAUDIA L NOTE: The Pap Test is a scree callum test with an inher ent false negat daniel rate. Liqui d-bas ed sampl ing may decre ase, but will not elimi michael, false negat daniel resul ts. A negat daniel resul t does not precl ude the prese nce and/o r devel opmen t of disea se, since the prese nce of abnor mal cells in the sampl e depen ds on the locat ion of the lesio n and sampl ing techn ique. [place] n[place] regul ar scree callum is the best metho d of cance r preve ntion . If repor armando cytol ogic findi ng do not corre late with physi michelle and/o r histo rical findi ngs, furth er inves tigat ion is recom brianne d, as clini rebel young nted. Not Available [facility] (Lab) [address], [place], [address], 08/13/2024 16:32:36 04/08/20 22 04/08/2022 US, pelvi s No observ ation record ed. [email or web address] [place] [address], [place], [address], 04/08/2022 13:32:09 04/08/20 22 04/08/2022 US, trans vagin al No observ ation record ed. [email or web address] [place] [address], [place], [address], 04/08/2022 13:32:23 04/08/20 22 04/08/2022 US, pelvi s No observ ation record ed. MEEK [address] [facility], [place], [address], 04/13/2022 10:58:49 01/04/20 24 01/03/2024 MAMMO , scree callum, digit al, bilat eral No observ ation record ed. [facility] [address], [place], [address], 01/05/2024 11:34:02 Result Notes None recorded. Problems Name Problem SNOMED Code Status Onset Date Resolution Date Notes Provider Name and Address Organization Details Recorded Time Screening for malignant neoplasm of rectum Completed 201703/06/2021 Encounter for screening for malignant neoplasm of rectum;Re corded Elsewhere : No Locati on: [facility] So urce: EHR Chron ic: N Practic e ID: [id number] Bill able Time: 02:30:00 PM Nicole Caruso [facility] 11:56:[address] Concept Completed 201703/06/2021 Encntr for inventory specialist exam (general) (routine) w/o abn findings; Recorded Elsewhere : No Locati on: [facility] So urce: EHR Chron ic: N Practic e ID: [id number] Bill able Time: 02:30:00 PM Nicole Caruso [facility] 11:56:[address] Concept Completed 201703/06/2021 Encntr for general adult medical exam w/o abnormal findings; Recorded Elsewhere : No Locati on: [facility] So urce: EHR Chron ic: N Practic e ID: [id number] Bill able Time: 02:30:00 PM Nicole Iniguezemeka bee [facility] 11:56:43 Problem Notes None recorded. Procedures Surgical History Date Name Laterality Status Provider Name and Address Organization Details Recorded Time 5 IUD Removal completed RAIZA BLOOM MD [address], [place], [address], [facility] 08/08/2024 11:16:54 4 Breast Implants completed Evelyn Mendes [facility] 08/08/2024 10:48:59 3 Date of Last Pap Smear completed Evelyn Mendes [facility] 08/08/2024 10:42:19 1 Date of Last Mammogram completed Sarah Finn [facility] 04/07/2022 12:22:58 8 Breast Implants completed Nicole Caruso [facility] 03/06/2021 12:03:28 Imaging Results Imaging Date Name Status LastModified by Organization Details LastModified Time 04/08/2022 US, pelvis completed [address], [place], [address], 04/08/2022 13:32:09 04/08/2022 US, [facility]inal [facility] [address], [place], [address], 04/08/2022 13:32:23 04/08/2022 US, pelvis completed MEEK [address], [place], [address], 04/13/2022 10:58:49 01/03/2024 MAMMO, screening, digital, bilateral completed [facility] [address], [place], [address], 01/05/2024 11:34:02 Procedure Notes None recorded. Medical Equipment None Reported. Allergies No known drug allergies Medications Name Sig Start Date Stop Date Status Note LastModified by Organization Details LastModified Time carisopro dol 350 mg tablet active Not Available Not Available No t Available hydrocodo ne 5 mg-acetam inophen 325 mg tablet 04/07 completed Not Available Not Available Not Available metronida zole 0.75 % (37.5 mg/5 gram) vaginal gel insert 1 applicat orful by vaginal route for 5 nights at bedtime 09/15 completed Not Available Not Available Not Available ondansetr on HCl 4 mg tablet active Not Available Not Available No t Available tramadol 50 mg tablet 04/07 completed Not Available Not Available Not Available oxycodone -acetamin ophen 5 mg-325 mg tablet 08/08 completed Not Available Not Available Not Available lorazepam 0.5 mg tablet active Not Available Not Available Not Available estradiol 1 mg tablet active Not Available Not Available Not Available metformin 1,000 mg tablet active Not Available Not Available Not Available hydroxyzi ne HCl 25 mg tablet 04/07 completed Not Available Not Available Not Available Vitamin D2 1,250 mcg (50,000 unit) capsule take 1 capsule by oral route every week 03/06 completed Prescrib calvin Aldana e: No Locat ion: Sree dam[facility] M odify By: elysia mace DateTime : 06/12/20 03:17:16 PM Not Available Not Available Not Available sertralin e 50 mg tablet active Not Available Not Available Not Available naproxen 500 mg tablet 04/07 completed Not Available Not Available Not Available progester one micronize d 100 mg capsule active Not Available Not Available Not Available tobramyci n 0.3 %-dexamet hasone 0.1 % eye drops,hi pension 05/16 completed Not Available Not Available Not Available rosuvasta tin 5 mg tablet active Not Available Not Available Not Available rosuvasta tin 10 mg tablet 08/08 completed Not Available Not Available Not Available rosuvasta tin 20 mg tablet 08/08 completed Not Available Not Available Not Available Vitals Date Recorded Body height Body mass index (BMI) Body weight Provider Name and Address Organization Details Last Updated DateTime 04/07/2022 157.48 cm 29.1 kg/m2 21412.19 g Sarah Finn [facility] 04/07/2022 12:16:15 Date Recorded Systolic blood pressure Diastolic blood pressure Provider Name and Address Organization Details Last Updated DateTime 04/07/2022 122 mm[Hg] 70 mm[Hg] Sandra Jackson, [facility]- [address], [place], [address], [facility] 04/07/2022 12:23:38 Date Recorded Body weight Systolic blood pressure Diastolic blood pressure Provider Name and Address Organization Details Last Updated DateTime 05/16/2023 26873.27 g 136 mm[Hg] 84 mm[Hg] Sarah Hemphill [facility] 05/16/2023 12:32:32 Date Recorded Body height Body mass index (BMI) Body weight Systolic blood pressure Diastolic blood pressure Provider Name and Address Organization Details Last Updated DateTime 08/08/2024 157.48 cm 25.2 kg/m2 56438.75 g 138 mm[Hg] 89 mm[Hg] Evelyn Mendes [facility] 10:47:52 Social History Question Answer Notes LastModified by Organizat ion Details LastModified Time Tobacco Smoking Status Never Smoker Carito Chairez rohit, [facility] 05/16/2023 12:29:16 Do You Have An Advance Directive? No [email or web address] Information not available 03/06/2021 What Is Your Level Of Alcohol Consumption? Occasional [email or web address] Information not available 03/06/2021 How Many Years Have You Consumed Alcohol? 28 [email or web address] Information not available 03/06/2021 Are You Blind Or Do You Have Difficulty Seeing? No [email or web address] Information not available 03/06/2021 What Is Your Level Of Caffeine Consumption? None [email or web address] Information not available 03/06/2021 How Much Tobacco Do You Chew? None [email or web address] Information not available 03/06/2021 In The 14 Days Before Symptom Onset, Have You Had Close Contact With A Laboratory-confir med COVID-19 While That Case Was Ill? No [email or web address] Information not available 03/06/2021 In The 14 Days Before Symptom Onset, Have You Had Close Contact With A Person Who Is Under Investigation For COVID-19 While That Person Was Ill? No [email or web address] Information not available 03/06/2021 Have You Been To An Area Known To Be High Risk For COVID-19? No [email or web address] Information not available 03/06/2021 Are You Deaf Or Do You Have Serious Difficulty Hearing? No [email or web address] Information not available 03/06/2021 What Type Of Diet Are You Following? REGULAR [email or web address] Information not available 03/06/2021 What Is The Highest Grade Or Level Of School You Have Completed Or The Highest Degree You Have Received? MP21520-8 [email or web address] Information not available 03/06/2021 What Is Your Occupation? Self Employed [email or web address] Information not available 03/06/2021 Are There Any Guns Present In Your Home? No Information not available 03/06/2021 Do You Use Protection During Sex? No [email or web address] Information not available 03/06/2021 Do You Use Your Seat Belt Or Car Seat Routinely? Yes [email or web address] Information not available 03/06/2021 Do You Have Smoke And Carbon Monoxide Detectors In Your Home? Yes Information not available 03/06/2021 How Much Tobacco Do You Smoke? No [email or web address] Information not available 03/06/2021 Do You Feel Stressed (tense, Restless, Nervous, Or Anxious, Or Unable To Sleep At Night)? RR08222-5 [email or web address] Information not available 03/06/2021 Do You Use Any Illicit Or Recreational Drugs? No [email or web address] Information not available 03/06/2021 Do You Use Sunscreen Routinely? Yes Information not available 03/06/2021 Have You Used IV Drugs? No [email or web address] Information not available 03/06/2021 Sex: Unknown Functional Status Question Answer Note LastModified by Organizat ion Details LastModified Time Do you have difficulty walking or climbing stairs? No [email or web address] Information not available 05/16/2023 Are you able to walk? YESWOREST [email or web address] Information not available 03/06/2021 Are you able to care for yourself? Yes [email or web address] Information not available 05/16/2023 Do you have difficulty dressing or bathing? No [email or web address] Information not available 05/16/2023 What is your exercise level? Moderate [email or web address] Information not available 03/06/2021 Mental Status None recorded. Family History Relationship Description Onset Age of this Age Resolved Age Notes LastModified by Organization Details LastModified Time Father Diabetes mellitus [email or web address] Not available 2021 12:16:27 Father Hypertensive disorder [email or web address] Not available 2021 12:16:27 Father Diabetes mellitus [email or web address] Not available 2024 10:31:57 Father Hypertensive disorder Not available 2024 10:31:57 Medical History Condition Response Allergies (Food, seasonal, environmental ) N Other N Breast Cancer N Drug/Latex Allergies/Reactions N Blood Transfusion N Dermatologic Disorders N Lung Disease N Defects or Inherited Disease N Breast Problem Y Gestational Diabetes N Hematologic disorders N Anesthesia Complications N History of STI N Deep Vein Thrombosis N Polycystic ovary syndrome N Anxiety Disorder Y Autoimmune disease N Arthritis N Infertility N Polyps N Acid Reflux (GERD) N History of abnormal pap N Cancer N Stroke N Varicosities N Neurologic/Epilepsy N Endometriosis N High Cholesterol N Headaches N Fibromyalgia N Kidney Disease N Heart Problems N Kidney or Bladder Problems N Thyroid Problems N GI Problems N Eating Disorder N Anemia N Art (IVF or FET) N Psychiatric Illness N Ovarian Cancer N Diabetes N Pulmonary (TB, Asthma) N Hepatitis/Liver Disease N No Past Medical History N Eczema N Urinary Tract Infection N Abuse/Domestic Violence N Asthma N Trauma/Violence N Depression/ depression N Heart Disease N Pre-Eclampsia N Hypertension N Osteoporosis N Thrombophilias N Gynecological History Statement/Question Response Abnormal Pap N Date of Last Mammogram 04/21/2021 Date of LMP 07/10/2009 On BCP's at Conception? N N Was last menstrual period normal Y STIs/STDs N HPV Vaccine N Current Control Method IUD Age at First Child 28 Sexually Active? Y Menses Monthly N Age of first menstrual cycle 15 Date of Last Pap Smear 05/16/2023 Sexual Problems? N LMP Approximate Y Obstetrics History GPAL:G 2 P 2 0 0 2 Type Value Full Term 2 Living 2 Total 2 Past Encounters Encounter ID Performer Location Encounter Start Date Encounter Closed Date Diagnosis/Indication Diagnosis SNOMED-CT Code Diagnosis ICD10 Code Diagnosis Note [id number] [facility] [address] [address] 03/06/2021 11:34:17 03/07/2021 23:13:13 Gynecologic examination 15679625 Z01.419 Suggested Calcium with Vitamin D 1200-1500m g daily. Patient advised to get an annual flu shot in the fall and she could obtain at [facility] or [facility] take care clinic. Also to obtain TDap vaccinatio n if you have not had one in the last 10 years. Recommend yearly mammograms . Encouraged monthly self breast exams. Encourage safe sexual practices, to use condoms and limit partners if not already in a monogamous relationsh ip. Engage in daily exercise of low impact aerobic exercise 45-60 minutes 4-5 times weekly. Avoid tobacco and illicit drugs as well as using moderation with alcohol intake less than 1-2 8 oz beverages daily. This lifestyle behavior pattern will lead to less health conditions and longer life span. If BMI greater than 25 weight watchers or dietary consult advised. All questions have been answered. Patient appears to understand informatio n, but if you have any questions please call or respond to this email. Pap/hpv sentIUD mirena strings +Pt had this device placed elsewhere. Will call & get placement date.STD declinedMa mmo ordered No other issues or concerns. Screening mammography 24 890910 Z12.31 [id number] Sandra Jackson [facility] [address],[place] [address] 09/15/2022 10:53:55 09/15/2022 11:13:23 [id number] Sandra Jackson [facility] [address],[place] [address] 04/07/2022 11:50:33 04/07/2022 12:43:07 Gynecologic examination 60599741 Z01.419 Z11.51 Take Calcium with Vitamin D 12-1500mg daily. Do monthly self breast exams. It is advised to get annual flu shot in the fall and she could obtain at [facility] or [facility] care clinic. If you haven't received the Tdap vaccine in the last 10 years you should obtain one as well. Have mammogram yearly, bone density every 2-3 years and colonoscop y every 5-10 years depending on findings and history. Engage in daily exercise of low impact aerobic exercise 45-60 minutes 4-5 times weekly. Avoid tobacco and illicit drugs as well as using moderation with alcohol intake less than 1-2 8 oz beverages daily. This lifestyle behavior pattern will lead to less health conditions and longer life span. If BMI greater than 25 weight watchers or dietary consult advised. Questions have been answered. Patient appears to understand instructio ns, but if you have any further questions call or respond to this email Pap/hpv sentSTD Screen declinedGe netic Screen discussedC olon Screen PCPDexa Screen PCPRoutine Labs PCPMammo Ordered Screening mammography 24 713845 Z12.31 Secondary dysmenorrhea 63319215 N94.5 WIll update US to ensure no issues & IUD checkExam wn today [id number] Tish Tavarez [facility] [address],[place] [address] 04/08/2022 12:28:05 04/08/2022 14:02:42 Secondary dysmenorrhea 90352507 N94.5 [id number] SUNDAR Houser [facility] [address],[place] [address] 05/16/2023 12:28:38 05/16/2023 13:18:14 Gynecologic examination 81859912 Z01.419 [facility] inserted 07/2016happ y with this method and would like to continuewi ll 07/2024pap updatedSTI testing declinedma mmogram order givenUTD with PCP for routine labscolono scopy UTDRTC in 1 yr or sooner if needed Take Calcium with Vitamin D daily.Do monthly self breast exams.It is advised to get annual flu shot in the fall and she could obtain at [facility] or [facility] clinic. If you haven't received the Tdap vaccine in the last 10 years you should obtain one as well.Have mammogram yearly, bone density every 2-3 years and colonoscop y every 5-10 years depending on findings and history.En samy in daily exercise of low impact aerobic exercise 45-60 minutes 4-5 times weekly. Avoid tobacco and illicit drugs as well as using moderation with alcohol intake less than 1-2 8 oz beverages daily. This lifestyle behavior pattern will lead to less health conditions and longer life span. If BMI greater than 25 dietary consult advised.Qu estions have been answered. Patient appears to understand instructio ns, but if you have any further questions call or respond to this email Screening for malignant neoplasm of breast [id number] Z12.39 Weight gain [id number] R63. 5 labs UTDexercis e recommenda tions reviewed (150 min per week, cardio and strength exercises) recommende d certified family mediator consult - resources discussed [id number] RAIZA BLOOM MD [place] [address],[facility] [place] [address] 08/08/2024 10:31:20 08/08/2024 11:18:57 Gynecologic examination [id number] Z01.419 [facility] woman care- Cervical cancer screening: Pap smear obtained today, will follow up on the results with the patient as they become available- Breast cancer screening: mammogram completed- HPV immunizati on: does not qualify- STD testing: declined- hereditary cancer screening: does not qualify for testing Removal of intrauterine contraceptive device [id number] Z30.432 1. IUD removed on 08/08 without difficulty 2. Menopausal on lab work, will monitor for bleeding Health Concerns Section Related Observation LastModified by Organization Detai ls LastModified Time None Recorded Concern Status LastModified by Organization Details LastModified Time None Recorded Advance Directives Directive N: Payers Encounter Date Sequence Insurance Name Policy Number Policy Todd Covered Member ID Todd Member ID Guarantor Name 04/07/[address] [facility] [employer] - CHOICE PLUS (PPO) [id number] Judy BiOM María Elena [id number] Judy María Elena 04/08/2022 1 [employer] CHOICE PLUS (PPO) [id number] Judy L María Elena [id number] Judy María Elena 09/15/2022 1 [employer] CHOICE [employer] (PPO) [id number] Judy L María Elena [id number] Judy María Elena 05/16/2023 1 [facility] [employer] - CHOICE PLUS (PPO) [id number] Judy L María Elena [id number] Judy María Elena 08/08/2024 1 [facility] [employer] - CHOICE PLUS (PPO) [id number] Judy BiOM María Elena [id number] [facility] María Elena Notes Date Note Type Note Provider Name and Address Organization Details Recorded Time 04/07/2022 text/html Annual GYNReport ed bypatient.History:no gynecologic complaints Menstrual cycle:Severe dysmenorrhea(the last couple of months noticed increased cramping around cycle time with IUD. Neg dyspareunia) Urinary symptoms:No hematuria; No incontinence Vulva:No genital lesion Vagina:Normal vaginal discharge Breast:No breast pain; No breast lump; No nipple discharge Current Contraception:Satisf ied with current contraception; Intrauterine device (iud) Sexual complaints:No sexual complaints; No pain during intercourse; Normal libido Menopausal Symptoms:No menopausal symptoms; Normal vaginal lubrication Psychological symptoms:No depression; No anxiety; No PMDD Preventive measures:Encourage self breast examination; Encourage regular exercise; Encourage no tobacco use; Encourage regular mammograms starting age 40; Followed with yearly pap smears; Needs to schedule mammogram; Up to date on colonoscopy screening SUNDAR [place]- [address], [place], [address], [facility] 04/07/2022 12:37:36 05/16/2023 text/html Annual GYNReport ed bypatient.Menstrual cycle:Normal menses Urinary symptoms:No hematuria; No incontinence Vulva:No genital lesion Vagina:Normal vaginal discharge Breast:No breast pain; No breast lump; No nipple discharge Current Contraception:Satisf ied with current contraception; Intrauterine device (iud); mirena IUD, inserted 07/2016 Sexual complaints:No sexual complaints; No pain during intercourse; Normal libido Menopausal Symptoms:No menopausal symptoms; Normal vaginal lubrication Psychological symptoms:No depression; No anxiety; No PMDD Preventive measures:Encourage self breast examination; Encourage regular exercise; Encourage no tobacco use; Encourage regular mammograms starting age 41Notes:no hx of abnormal papslast pap 03/2022 - normalmammogram last olonoscopy UTD unable to loose weight despite diet and exercise and over the past 1 yrexercising when able, eating healthynormal blood work with PCP SUNDAR Houser [address], [place], [address], [facility] 05/16/2023 13:04:16 08/08/2024 text/html Presents today f or her annual well-woman exam. Denies abnormal vaginal discharge. She is sexually active and denies dyspareunia. She has not noticed any changes or masses in her breasts. Had breast implant exchange and lift. Up to date on mammograms. Menopausal, no PMB. No hx of abnormal pap smears. She currently has a Mirena IUD in place, however had blood work done demonstrating menopausal status at outpatient clinic. Would like removal today. RAIZA BLOOM MD [address], [place], [address], [facility] 08/08/2024 11:18:31 OBGyn Episode Ob Episode Information Episode Created Date Number of Fetuses Patient Bloodtype Patient rh Status Prepregnancy Weight lbs Domestic Partner Domestic Partner Phone Father Name General Surgery Physician Assistant Status 03/06/20 21 1 CLOSED Fetus Data First Name Last Name Admitted to NICU Weight (g) Sex Living Outcome Pediatric Complications Fetus ID Race Codes Race Delivery Type 2749.67 [id number] F Full Term [id number] Vaginal Delivery Mario Calculation Initial Mario Date Initial Exam Date Initial Exam Provider Initial Ultrasound Date Last Menstrual Period Date Ultra Sound Weeks Gestation 0 Eighteen To Twenty Week Mario Update Ultra Sound Date Fundal Height At Umbil Quickening Date Ultra Sound Latest Weeks Gestation Final Mario Confirmed By Final Mario Confirmed Date Final Mario Date Ultra Sound Latest Days Gestation 0 0 Menstrual History Last Menstrual Date Menses Monthly On Bcp Conception Prior Menses Frequency Hcg Plus Date Menarche Onset Age Delivery Information Delivery Date Delivery Type Labor Anesthesia Weeks Gestation Incision Type Labor Labor Length Hrs Delivered By Post Complications Tubal Sterilization Discharge Date Comments 5 40 Discharge Information Feeding Method Contraceptive Method Maternal HG B and HCT Levels Ob Episode Information Episode Created Date Number of Fetuses Patient Bloodtype Patient rh Status Prepregnancy Weight lbs Domestic Partner Domestic Partner Phone Father Name General Surgery Physician Assistant Status 03/06/20 21 1 CLOSED Fetus Data First Name Last Name Admitted to NICU Weight (g) Sex Living Outcome Pediatric Complications Fetus ID Race Codes Race Delivery Type 2778.25 1 F Full Term [id number] Vaginal Delivery Mario Calculation Initial Mario Date Initial Exam Date Initial Exam Provider Initial Ultrasound Date Last Menstrual Period Date Ultra Sound Weeks Gestation 0 Eighteen To Twenty Week Mario Update Ultra Sound Date Fundal Height At Umbil Quickening Date Ultra Sound Latest Weeks Gestation Final Mario Confirmed By Final Mario Confirmed Date Final Mario Date Ultra Sound Latest Days Gestation 0 0 Menstrual History Last Menstrual Date Menses Monthly On Bcp Conception Prior Menses Frequency Hcg Plus Date Menarche Onset Age Delivery Information Delivery Date Delivery Type Labor Anesthesia Weeks Gestation Incision Type Labor Labor Length Hrs Delivered By Post Complications Tubal Sterilization Discharge Date Comments 9 40 [facility] ---lost feeling on left side of body Discharge Information Feeding Method Contraceptive Method Maternal HG B and HCT Levels
[2024-09-16 11:37] LABS: Free T4 Free Thyroxine 0.94 ng/dL (0.78-2.19); Vitamin D 25 Hydroxy 66.7 ng/mL
[2024-09-16 12:23] LABS: Hemoglobin A1C 5.1 % (<5.7)
== END 2024-09-16 09:50 | disposition home or self-care (01) ==
LOC: ANHLAB 09:49
PROVIDERS: PCP Internal Medicine; Visit Provider Internal Medicine
DX: E78.5 Hyperlipidemia, unspecified (principal); E55.9 Vitamin D deficiency, unspecified; Z79.899 Other long term (current) drug therapy; Z13.1 Encounter for screening for diabetes mellitus; Z13.29 Encounter for screening for other suspected endocrine disorder
CPT/HCPCS: 36415; 80053; 80061; 82306; 83036; 84439; 84443